=== PATIENT | female | born 1985 | race African-American/Black ===

== ENCOUNTER 2017-04-02 13:51 | Emergency (ER) | payer MEDICAID ==
[~2017-04-02] VITALS: Ht 165.1 cm; Wt 57.0 kg
[~2017-04-02 13:51] MED LIST: ALBU8I INH; COMPLERA; DICL75 PO; HEMOCYTE; Risperidone; aspirin; celexa
[2017-04-02 13:53] VITALS: BP 87/63; PULSE 88; RESP 24; TEMP 98.4; O2SAT 100
[2017-04-02] MEDS ORDERED: KETOROLAC TROMETHAMINE 60 MG/2 ML (IM) VIAL IM ONE (14:15)
[2017-04-02] MEDS ORDERED: IBUP-232 PO (14:21)
[2017-04-02] MEDS ORDERED: TRAM50TA PO (14:21)
[2017-04-02] MEDS ORDERED: PERI0.126 SWISH-SPIT (14:21)
--- NOTE | 2017-04-02 14:21 | PD ---
HPI Chief Complaint: Oral / Dental Pain or Problem Time Seen by Provider: 14:15 Travel History International Travel<30 days: No Contact w/Intl Traveler<30days: No Traveled to known affect area: No History of Present Illness HPI 31 year old female with no significant medical history presents to the ED for evaluation of a chipped right mandibular 1st molar. Pt states she went to a dentist and has an appointment in 2 weeks for a root canal. She believes her tooth is infected because it is painful. Pt states it is 10/10 and throbbing. She went to [facility] last evening and was not provided the pain control that she requested, so she left. No history of trauma. No fever or chills. Denies any chance of . No other symptoms to report. PFSH Past Medical History Hx Anticoagulant Therapy: No Anemia: Yes Asthma: Yes Depression: Yes Cardiovascular Problems: No Chemotherapy: No Cerebrovascular Accident: No Diabetes: No Diminished Hearing: No Respiratory: No Immunizations Current: No ?: Not LMP: 03/29/17 : 4 Para: 3 : 1 Past Surgical History Hysterectomy: No Other Surgery: Yes (atery repair in neck after accident) Social History Alcohol Use: No Tobacco Use: Yes Substance Use: No Allergies-Medications (Allergen,Severity, Reaction): Coded Allergies: Augmentin (Verified Allergy, Severe, HIVES, 04/02/17) Codeine (Verified Allergy, Severe, NAUSEA, 04/02/17) Penicillin (Verified Allergy, Severe, Hives, 04/02/17) Reported Meds & Prescriptions Reported Meds & Active Scripts Active Tramadol (Tramadol HCl) 50 Mg Tab 50 Mg PO Q6H PRN Peridex Liq (Chlorhexidine Gluconate (Mouth) Liq) 0.12% Soln 15 Ml SWISH-SPIT BID Review of Systems Except as stated in HPI: all other systems reviewed are Neg Physical Exam Narrative GENERAL: Well-nourished, well-developed female patient in no acute distress SKIN: Focused skin assessment warm/dry. HEAD: Normocephalic. Without erythema or edema EYES: No scleral icterus. No injection or drainage. DENTAL: No loose teeth. The right mandibular first molar has a chip broken out of it. There appears to be mild cavity surrounding it. No gingival erythema or edema. No appreciable abscess. No malocclusion. Submental space is soft; no lymphadenopathy. NECK: Supple, trachea midline. No JVD or lymphadenopathy. CARDIOVASCULAR: Regular rate and rhythm without murmurs, gallops, or rubs. RESPIRATORY: Breath sounds equal bilaterally. No accessory muscle use. Data Data Last Documented VS Vital Signs Date Time Temp Pulse Resp B/P Pulse Ox O2 Delivery O2 Flow Rate FiO2 04/02/17 13:53 98.4 88 24 87/63 100 Room Air Orders Ketorolac Inj (Toradol Inj) (04/02/17 14:15) MDM Medical Decision Making Medical Screen Exam Complete: Yes Emergency Medical Condition: Yes Medical Record Reviewed: Yes Differential Diagnosis dental caries versus dental trauma versus gingivitis versus pulpitis Narrative Course 31 year old female presents to the ED for evaluation of tooth pain associated with a chipped R mandibular first molar. Pt VSS; I have requested a recheck of her blood pressure due to large cuff being used. Recheck is 104/72. Gingival is pink without any significant erythema. There is no edema. No appreciable abscess. No lymphadenopathy. I have offered patient I am Toradol which she accepts. Patient has no signs of infection. I'll provide her with prescription for Peridex oral rinse and additional pain control until she can have the tooth repaired by her dentist. Patient is not happy with not receiving antibiotics. I have explained to her that clindamycin is my option for anti-infective and to prescribe it to her with no signs of infection would be inappropriate care. She responds "You a bitch-ass ho. 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 Pt is discharged without further complications. Diagnosis Primary Impression: Dentalgia Additional Impression: Chipped tooth Qualified Code: S02.5XXA - Closed fracture of tooth, initial encounter Referrals: Dentist Patient Instructions: Dental Caries (GEN), General Instructions Additional Instructions: Seek dental evaluation as soon as possible Follow up with your primary care provider Return to ED with acute worsening of symptoms Med/Other Pt SpecificInfo: Prescription(s) given Scripts Ibuprofen 600 Mg God672 Mg PO Q8HR PRN (PAIN) #30 TAB Ref 0 Prov:Guadalupe Condon 04/02/17 Tramadol 50 Mg Tab50 Mg PO Q6H PRN (PAIN GREATER THAN 5) #12 TAB Ref 0 Prov:Guadalupe Condon 04/02/17 Chlorhexidine Gluconate (Mouth) Liq (Peridex Liq)0.12% Soln15 Ml SWISH-SPIT BID #473 ML Ref 0 Prov:Guadalupe Condon 04/02/17 Disposition: 01 DISCHARGE HOME Condition: Stable Guadalupe Condon Apr 02, 2017 14:21
== END 2017-04-02 14:46 | disposition home or self-care (01) ==
LOC: NEPE 13:51
DX: S02.5XXA Fracture of tooth (traumatic), initial encounter for closed fracture (principal); D64.9 Anemia, unspecified; J45.909 Unspecified asthma, uncomplicated; F32.9 Major depressive disorder, single episode, unspecified; X58.XXXA Exposure to other specified factors, initial encounter; Z72.0 Tobacco use; Z88.5 Allergy status to narcotic agent; Z88.0 Allergy status to penicillin; Z79.899 Other long term (current) drug therapy
CPT/HCPCS: 96372; 99284; J1885

== ENCOUNTER 2017-10-29 14:03 | Emergency (ER) | payer MEDICAID ==
[~2017-10-29 14:03] MED LIST changes: -ALBU8I INH; -COMPLERA; -DICL75 PO; -HEMOCYTE; +IBUP-232 PO; +PERI0.126 SWISH-SPIT; -Risperidone; +TRAM50TA PO; -aspirin; -celexa
== END 2017-10-29 16:47 | disposition left against medical advice (07) ==
LOC: NED 14:03
DX: R20.0 Anesthesia of skin (principal)
CPT/HCPCS: 99281